=== PATIENT | male | born 1945 | race Caucasian/White ===

== ENCOUNTER 2018-05-25 13:54 | Emergency (ER) | payer OTHER ==
[~2018-05-25] VITALS: Ht 185.4 cm; Wt 78.0 kg
[2018-05-25 14:22] LABS: AMYLASE 172 IU/L (1-118); PTT 32.9 SEC (25-37)
[2018-05-25 14:29] LABS: HEMATOCRIT 41.1 % (38.0-50.0); HEMOGLOBIN 14.3 G/DL (12.5-16.6); MCH 32.1 PG (29.0-34.0); MCHC 34.8 G/DL (30.0-36.0); MCV 92.2 FL (86-99); PLATELET COUNT 228 K/uL (156-360); RBC DIS.WIDTH-CV 13.2 % (11.8-14.6); RBC DIS.WIDTH-SD 44.4 % (39-53); RED BLOOD COUNT 4.46 M/uL (4.00-5.50); WHITE BLOOD COUNT 5.9 K/uL (4.1-10.2)
[2018-05-25 14:31] LABS: CHLORIDE 104 mEq/L (99-109); LIPASE 239 U/L (1.0-51.0); POTASSIUM 4.5 mEq/L (3.7-5.4); SODIUM 138 mEq/L (136-147)
[2018-05-25 14:32] LABS: GLUCOSE 146 mg/dL (70-99)
[2018-05-25 14:34] LABS: INTER. NORMALIZED RATIO 1.1
[2018-05-25 14:36] LABS: CREATININE 1.4 mg/dL (0.6-1.3); GFR ESTIMATE (CALCULATED) 53 mL/min/ (58.99-99999); TROP-I INTERPRETATION NEGATIVE; TROPONIN-I < 0.01 ng/mL (0.0-0.30)
[2018-05-25 14:37] LABS: UREA NITROGEN (BUN) 25 mg/dL (9-23)
[2018-05-25 16:16] LABS: AMPHETAMINE NEGATIVE (500 ng/mL); BARBITURATES NEGATIVE (200 ng/mL); BENZODIAZEPINES NEGATIVE (150 ng/mL); BUPRENORPHINE NEGATIVE (10 ng/mL); COCAINE NEGATIVE (150 ng/mL); METHADONE NEGATIVE (200 ng/mL); METHAMPHETAMINE NEGATIVE (500 ng/mL); OPIATES (MORPHINE) NEGATIVE (100 ng/mL); OXYCODONE NEGATIVE (100 ng/mL); PHENCYCLIDINE NEGATIVE (25 ng/mL); PROPOXYPHENE NEGATIVE (300 ng/mL); THC CANNABINOIDS NEGATIVE (50 ng/mL); TRICYCLIC ANTIDEPRESSANTS NEGATIVE (300 ng/mL)
[2018-05-25 17:16] VITALS: BP 103/58
== END 2018-05-25 17:17 | disposition home or self-care (01) ==
LOC: EME 13:54
PROVIDERS: Emergency Medicine
DX: H34.9 Unspecified retinal vascular occlusion (principal); R51 Headache; H54.62 Unqualified visual loss, left eye, normal vision right eye; I25.10 Atherosclerotic heart disease of native coronary artery without angina pectoris
CPT/HCPCS: 70450; 80048; 82150; 83690; 84484; 85027; 85610; 85730; 99281; 99284